=== PATIENT | male | born 1970 | race Caucasian/White ===

== ENCOUNTER 2017-10-08 05:58 | Inpatient (IN) | payer OTHER ==
[~2017-10-08] VITALS: Ht 182.9 cm; Wt 83.9 kg
[~2017-10-08 05:58] MED LIST: HYDACE5; MORP15ER PO; MORP30ER PO; OXYACE5T PO; TESTTP; VICODIN 5-3001 EACH PO
[2017-10-08 06:45] LABS: BASOPHILS ABSOLUTE AUTO 0.02 K/mm3 (0.00-0.23); BASOPHILS PERCENT AUTO 0 % (0-2); EOSINOPHILS ABSOLUTE AUTO 0.05 K/mm3 (0.00-0.68); EOSINOPHILS PERCENT AUTO 0 % (0-6); Hematocrit 53.9 % (37.0-53.0); Hemoglobin 18.6 g/dL (13.5-17.5); IMMATURE GRAN ABSOLUTE AUTO 0.02 K/mm3 (0.00-0.10); IMMATURE GRAN PERCENT AUTO 0 % (0-1); LYMPHOCYTES ABSOLUTE AUTO 0.68 K/mm3 (0.84-5.20); LYMPHOCYTES PERCENT AUTO 6 % (21-46); MONOCYTES ABSOLUTE AUTO 0.85 K/mm3 (0.16-1.47); MONOCYTES PERCENT AUTO 8 % (4-13); Mean Corpuscular HGB 29.3 pg (26.0-34.0); Mean Corpuscular HGB Conc 34.5 g/dL (31.5-36.5); Mean Corpuscular Volume 85 fL (80-100); NEUTROPHILS ABSOLUTE AUTO 9.59 K/mm3 (1.96-9.15); NEUTROPHILS PERCENT AUTO 86 % (41-73); Platelet Count 270 K/mm3 (150-400); Red Blood Cell Count 6.35 M/mm3 (4.30-5.90); White Blood Cell Count 11.21 K/mm3 (4.00-11.30)
[2017-10-08 06:56] LABS: Alanine Aminotransfer (ALT/SGP 208 U/L (12-78); Albumin, Blood 4.3 g/dL (3.4-5.0); Albumin/Globulin Ratio 1.2 (0.8-1.8); Alk Phos 84 U/L (50-136); Anion Gap 7 mmol/L (6-16); Aspartate Aminotrans (AST/SGOT 147 U/L (12-37); Bilirubin, Total 1.6 mg/dL (0.1-1.0); Blood Urea Nitrogen 17 mg/dL (8-24); Bun/Creatinine Ratio 28.3 (12.0-20.0); CO2, Blood 28 mmol/L (21-32); Chloride, Blood 105 mmol/L (98-108); Globulin, Blood 3.5 g/dL (2.2-4.0); Glomerular Filtration Rate >60 (60-); Glucose, Blood 149 mg/dL (70-99); Sodium, Blood 140 mmol/L (136-145); Total Protein, Blood 7.8 g/dL (6.4-8.2)
[2017-10-09 04:50] LABS: Mean Corpuscular HGB 29.2 pg (26.0-34.0); Mean Corpuscular HGB Conc 33.3 g/dL (31.5-36.5); Mean Platelet Volume 10.3 fL (9.1-12.4); Platelet Count 206 K/mm3 (150-400); RDW Coefficient Variation 13.2 % (11.7-14.2); Red Blood Cell Count 5.13 M/mm3 (4.30-5.90); White Blood Cell Count 14.63 K/mm3 (4.00-11.30)
[2017-10-09 04:53] LABS: Mean Corpuscular Volume 88 fL (80-100)
[2017-10-09 05:21] LABS: Alanine Aminotransfer (ALT/SGP 148 U/L (12-78); Albumin, Blood 3.1 g/dL (3.4-5.0); Albumin/Globulin Ratio 1.1 (0.8-1.8); Alk Phos 54 U/L (50-136); Anion Gap 8 mmol/L (6-16); Aspartate Aminotrans (AST/SGOT 55 U/L (12-37); Bilirubin, Total 0.8 mg/dL (0.1-1.0); Blood Urea Nitrogen 11 mg/dL (8-24); Bun/Creatinine Ratio 21.3 (12.0-20.0); CO2, Blood 24 mmol/L (21-32); Calcium, Blood 7.4 mg/dL (8.5-10.1); Chloride, Blood 110 mmol/L (98-108); Creatinine, Blood 0.52 mg/dL (0.60-1.20); Globulin, Blood 2.7 g/dL (2.2-4.0); Glomerular Filtration Rate >60 (60-); Glucose, Blood 96 mg/dL (70-99); Potassium, Blood 3.5 mmol/L (3.5-5.5); Sodium, Blood 142 mmol/L (136-145)
[2017-10-09 05:27] LABS: Total Protein, Blood 5.8 g/dL (6.4-8.2)
[2017-10-09 10:05] LABS: Source, Urine Clean Catch
[2017-10-09 10:08] LABS: Bilirubin, Urine Neg (Neg); Blood, Urine Neg (Neg); Glucose Qualitative, Urine Neg (Neg); Ketones, Urine Neg (Neg); Leukocyte Esterase, Urine Neg (Neg); Nitrite, Urine Neg (Neg); Protein, Urine Neg (Neg); Urobilinogen, Urine NORM (Normal); pH, Urine 6.5 (5.0-8.0)
[2017-10-09 10:15] LABS: Appearance, Urine Clear (Clear); Color, Urine Yellow (P-Yellow)
[2017-10-09] MEDS ORDERED: ROXICODONE5 MG PO (16:10)
[2017-10-09] MEDS ORDERED: CEPH500 PO (16:11)
== END 2017-10-09 16:37 | disposition home or self-care (01) | DRG 418 ==
LOC: ER 05:58 → SURS 09:07
PROVIDERS: Emergency Medicine; Internal Medicine; Surgery
PROC: BF031ZZ Plain Radiography of Gallbladder and Bile Ducts using Low Osmolar Contrast (ICD-10-PCS; 2017-10-08)
PROC: 0FT44ZZ Resection of Gallbladder, Percutaneous Endoscopic Approach (ICD-10-PCS; principal; 2017-10-08 12:00)
DX: K80.00 Calculus of gallbladder with acute cholecystitis without obstruction (principal); G71.0 Muscular dystrophy; D75.1 Secondary polycythemia; G89.29 Other chronic pain; Z79.1 Long term (current) use of non-steroidal anti-inflammatories (NSAID); Z79.891 Long term (current) use of opiate analgesic
CPT/HCPCS: 36415; 71046; 74300; 76705; 80053; 81003; 83690; 85025; 85027; 88304; 96361; 96365; 96375; 96376; 99285; C1894; J0295; J1100; J1170; J1650; J1885; J2250; J2405; J2543; J3010; J7030; J7120

== ENCOUNTER 2021-04-07 07:49 | Day surgery (SDC) | payer OTHER ==
--- NOTE | 2021-04-06 11:01 | NUR ---
Medications and Allergies reviewed and updated per patient over the phone.
[~2021-04-07] VITALS: Ht 182.9 cm; Wt 86.8 kg
[~2021-04-07 07:49] MED LIST changes: +AMIT25 PO; +Aspirin325 MG PO; +CEPH500 PO; +DEPO-TESTO200 MG/1 M PO; +HYDR1TAB94 PO; +IBUP200 PO; +Norco 5-325 Ta1 EACH PO; +ROXICODONE5 MG PO
--- NOTE | 2021-04-07 08:41 | NUR ---
Ambulatory in Day Surgery Patient states colon prep results clear. History, Chart, Medications and Allergies reviewed before start of procedure. Lungs clear T/O to Auscultation. Patient confirms NPO status and agrees with scheduled surgery. Pre-Op teaching done. Pt verbalizes understanding. Patient States Post-Procedure ride home has been arranged.
--- NOTE | 2021-04-07 09:05 | NUR ---
04/07/21 0905 Alvaro Hinson PATIENT DETERMINED TO BE ASA APPROPRIATE FOR PROPOFOL SEDATION PRIOR TO START OF PROCEDURE BY DR. Harry Block Placed 3-LEAD EKG REVIEWED WITH PHYSICIAN PRIOR TO START OF PROCEDURE. Patient to ENDO 1 History, Chart, Medications and Allergies reviewed before start of procedure. MONITOR INTACT WITH CONTINUOUS PULSE OXIMETRY AND INTERMITTENT BP. O2 VIA N/C INTACT THROUGHOUT SEDATION/PROCEDURE.
--- NOTE | 2021-04-07 10:22 | NUR ---
patient dressed ready for dishcarge all belongings sent with patient and discharge instrcutions.
== END 2021-04-07 22:48 | disposition home or self-care (01) ==
LOC: ORSCMMR 07:49 → ORD 08:00 → ORSCMMR 09:00
PROVIDERS: Internal Medicine Gastroenterology
PROC: 0DBL8ZX Excision of Transverse Colon, Via Natural or Artificial Opening Endoscopic, Diagnostic (ICD-10-PCS; principal; 2021-04-07 09:00)
PROC: 0DBK8ZX Excision of Ascending Colon, Via Natural or Artificial Opening Endoscopic, Diagnostic (ICD-10-PCS; principal; 2021-04-07 09:00)
PROC: 0D758ZZ Dilation of Esophagus, Via Natural or Artificial Opening Endoscopic (ICD-10-PCS; principal; 2021-04-07 09:00)
PROC: 0DB68ZX Excision of Stomach, Via Natural or Artificial Opening Endoscopic, Diagnostic (ICD-10-PCS; principal; 2021-04-07 09:00)
PROC: 0DB58ZX Excision of Esophagus, Via Natural or Artificial Opening Endoscopic, Diagnostic (ICD-10-PCS; principal; 2021-04-07 09:00)
PROC: 0DB48ZX Excision of Esophagogastric Junction, Via Natural or Artificial Opening Endoscopic, Diagnostic (ICD-10-PCS; principal; 2021-04-07 09:00)
DX: R13.14 Dysphagia, pharyngoesophageal phase (principal); K20.0 Eosinophilic esophagitis; K22.2 Esophageal obstruction; K29.70 Gastritis, unspecified, without bleeding; D12.2 Benign neoplasm of ascending colon; D12.3 Benign neoplasm of transverse colon; K57.30 Diverticulosis of large intestine without perforation or abscess without bleeding; Z12.11 Encounter for screening for malignant neoplasm of colon; Z79.82 Long term (current) use of aspirin; Z79.899 Other long term (current) drug therapy
CPT/HCPCS: 88305; 88312; 88342; A9270; C1726; J2704; J7120

== ENCOUNTER → 2022-08-10 | Outpatient (CLI) | payer OTHER | END | disposition home or self-care (01) | LOC: LAB 09:45 → LAB SHORT 09:45 | DX: J02.9 Acute pharyngitis, unspecified (principal) | CPT/HCPCS: 87081 ==